=== PATIENT | male | born 1990 | race Caucasian/White ===

== ENCOUNTER 2018-02-05 14:09 | Emergency (ER) | payer BC ==
[2018-02-05 14:25] VITALS: BP 121/68
--- NOTE | 2018-02-05 14:34 | UC ---
Knee Pain HPI - HPI Summary HPI Summary: 27 y/o male presents to the urgent care c/o Rt knee redness and sore s/p insect bite for the past 2 days. Pt doesn't recall any trauma. 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 Pain is 6/10, dull, warm to touch and rash is bigger today. He thinks he had subjective fever w/ chills last night. He has not taken anything to alleviate symptoms. Pt denies Hx of tick bites, STDs, recent strep, SOb, chest pain, abdominal pain, N/V/D, Hx of gout. - History of Current Complaint Chief Complaint: UCLowerExtremity Stated Complaint: R KNEE COMPLAINT Time Seen by Provider: 02/05/18 14:32 Hx Obtained From: Patient Onset/Duration: Gradual Onset, Lasting Days - 1 day, Still Present, Worse Since - this morning Severity Initially: Mild Severity Currently: Moderate Pain Intensity: 6 Pain Scale Used: 0-10 Numeric Character: Dull Aggravating Factor(s): Other - touch Alleviating Factor(s): Rest, OTC Meds Associated Signs And Symptoms: Positive: Swelling - mild, Redness, Fever. Negative: Numbness, Tingling - Risk Factors Septic Arthritis Risk Factor: Negative Gout Risk Factor: Negative - Allergies/Home Medications Allergies/Adverse Reactions: Allergies Allergy/AdvReac Type Severity Reaction Status Date / Time No Known Allergies Allergy Verified 02/05/18 14:25 PMH/Surg Hx/FS Hx/Imm Hx Previously Healthy: Yes Endocrine History: Dyslipidemia - diet control - Surgical History Surgical History: None - Family History Family History: Dyslipidemia - Social History Occupation: Employed Full-time Lives: With Family Alcohol Use: Weekly Substance Use Type: None Smoking Status (MU): Never Smoked Tobacco Review of Systems Constitutional: Fever - subjective last night, Chills Skin: Rash - RT knee redness and mild swellin gand warm to touch s/p insect bite Eyes: Negative ENT: Negative Respiratory: Negative Cardiovascular: Negative Gastrointestinal: Negative Genitourinary: Negative Motor: Negative Neurovascular: Negative Musculoskeletal: Other: - RT knee pain s/p insect bite Neurological: Negative Psychological: Negative Is Patient Immunocompromised?: No All Other Systems Reviewed And Are Negative: Yes Physical Exam - Summary Physical Exam Summary: Vital Signs Reviewed: Yes General: well developed, well nourished male sitting in the examining table w/o any apparent distress Eyes: Positive: Conjunctiva Clear - PERRLA, EOMI, fundi grossly normal ENT: Positive: Normal ENT inspection, Hearing grossly normal, Pharynx normal, TMs normal Neck: Positive: Supple, Nontender, No Lymphadenopathy Respiratory: Positive: Chest nontender, Lungs clear, Normal breath sounds, No respiratory distress Cardiovascular: Positive: RRR, No Murmur, Pulses Normal, Brisk Capillary Refill Abdomen Description: Positive: Nontender, No Organomegaly, Soft. Negative: CVA Tenderness (R), CVA Tenderness (L) Bowel Sounds: Positive: Present Musculoskeletal: Positive: Strength Intact, No Edema, RT Knee: Pt is able to bear weight and ambulate w/o limping. No surface trauma, mild soft tissue swelling, no obvious effusion. Positive overlying erythema patch about 4.0x 3.0cm in size w/ indistinct borders and warmth w/ a central insect bite w/o any drainage. The R knee is without obvious asymmetry or deformity when compared with the L knee. FROM of RT knee. No tenderness to palpation of the patella, no effusion or ballottement. No tenderness over the infrapatellar tendon. No point tenderness over the medial joint line, No tenderness over the medial or lateral tibial plateaus. No tenderness over the proximal fibular head , No tenderness, fullness or mass of the popliteal fossa. Distal motor and neurovascular status intact. Neurological Exam: Normal Psychological Exam: Normal Skin Exam: Normal Triage Information Reviewed: Yes Vital Signs: Initial Vital Signs Temp 98.6 F 02/05/18 14:19 Pulse 81 02/05/18 14:19 Resp 16 02/05/18 14:19 BP 121/68 02/05/18 14:19 Pulse Ox 98 02/05/18 14:19 Knee Pain Course/Dx - Course Course Of Treatment: 27 y/o male presents to the urgent care c/o Rt knee redness and sore s/p insect bite for the past 2 days. Pt doesn't recall any trauma. 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 Pain is 6/10, dull, warm to touch and rash is bigger today. He thinks he had subjective fever w/ chills last night. He has not taken anything to alleviate symptoms. Pt denies Hx of tick bites, STDs, recent strep, SOb, chest pain, abdominal pain, N/V/D, Hx of gout. Hx obtained. Pt with possible cellulitis over the Rt knee s/p insect bite. Pt Rx Keflex PO,and Ibuprofen PO. rash demarcated with a skin marker and Advised if rash doubles in size and if he develops fever to go to the ER for further treatment. Pt BP today elevated w/o Hx of HTN. D/C instructions explained. Pt understood and agreed w/ plan of care. - Differential Dx/Diagnosis Differential Diagnosis/HQI/PQRI: Abrasion, Cellulitis, Contusion, Gout, Infection, Puncture Wound, Other - insect bite Provider Diagnoses: 1 Rt knee cellulitis s/p insect bite Discharge - Sign-Out/Discharge Documenting (check all that apply): Patient Departure - D/c home - Discharge Plan Condition: Stable Disposition: HOME Prescriptions: Cephalexin CAP* [Keflex CAP*] 500 mg PO QID #28 cap Ibuprofen TAB* [Motrin TAB* 800 MG] 800 mg PO Q6H PRN #30 tab PRN Reason: Pain Patient Education Materials: Cellulitis (ED) Referrals: Yamile Young MD [Primary Care Provider] - 3 Days Additional Instructions: 1-Please take full course of Antibiotic. 2- If redness and swelling doubles in size beyond what was demarcated after 48 hrs of taking antibiotic and fever develops please go to the ER immediately. 3-Avoid standing for long periods of time or flexing your knee, keep it elevated and keep wound clean and dry. 4-Please F/u with your PCP in 3 days if not improvement for further evaluation and treatment. - Billing Disposition and Condition Condition: STABLE Disposition: Home
== END 2018-02-05 15:02 | disposition home or self-care (01) ==
LOC: UCEAST 14:09
DX: S80.261A Insect bite (nonvenomous), right knee, initial encounter (principal); L03.115 Cellulitis of right lower limb; W57.XXXA Bitten or stung by nonvenomous insect and other nonvenomous arthropods, initial encounter; Y93.9 Activity, unspecified; Y92.9 Unspecified place or not applicable
CPT/HCPCS: 99202; G0463

== ENCOUNTER 2018-02-14 07:18 | Emergency (ER) | payer BC ==
[2018-02-14 07:34] VITALS: BP 132/83
--- NOTE | 2018-02-14 07:41 | UC ---
Knee Pain HPI - HPI Summary HPI Summary: This is scribe Aminah Portillo documenting for attending Dr. Erik MD. The patient is a 27 year old M presenting to Urgent Care for knee recheck. The patient was last here on 02/05/18, they told him he had cellulitis on his R knee. It was red and painful, he was prescribed cephalexin, the swelling went down some but not all the way, and theres still pain. 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 The knee was much larger than it is now, but since the Abx treatment ended the swelling has gone back up and so has the pain. The patient can walk on it, but after a while it gets sore, and it feels hot if he stands on it, and there has been a "prickly" pain the last few days. His tetanus shot up to date, no smoking, no arthritis or gout, no meds, occasional EtOH use. No punctures in the skin, no ticks or bug bites. He tried to ice it, which caused an increase in pain. I, Dr. Valencia, personally performed the services described in this documentation as scribed in my presence and it is both accurate and complete. - History of Current Complaint Chief Complaint: UCLowerExtremity Stated Complaint: RECHECK KNEE ISSUE Time Seen by Provider: 02/14/18 07:25 Hx Obtained From: Patient Onset/Duration: Lasting Weeks, Still Present Severity Initially: Mild Severity Currently: Mild Location Of Injury: R anterior knee Pain Intensity: 3 Pain Scale Used: 0-10 Numeric Character: Sharp - prickly Aggravating Factor(s): Prolonged Standing, Other - ice Associated Signs And Symptoms: Positive: Swelling, Redness Able to Bear Weight: Yes - Allergies/Home Medications Allergies/Adverse Reactions: Allergies Allergy/AdvReac Type Severity Reaction Status Date / Time No Known Allergies Allergy Verified 02/14/18 07:34 PMH/Surg Hx/FS Hx/Imm Hx - Additional Past Medical History Additional PMH: No arthritis, no gout Previously Healthy: No Cardiovascular History: Other Other Cardiovascular History: neg HTN - Surgical History Surgical History: None - Family History Family History: Dyslipidemia - Social History 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 Lives: With Family Alcohol Use: Occasionally Substance Use Type: None Smoking Status (MU): Never Smoked Tobacco - Immunization History Immunizations Comment: Tetanus UTD Review of Systems Skin: Negative - no punctures, tick or bug bites., Other - redness on R knee Musculoskeletal: Edema - R knee All Other Systems Reviewed And Are Negative: Yes Physical Exam - Summary Physical Exam Summary: Appearance: Well appearing, no pain distress Skin: skin thickening, induration just inferior to R patella, mild warmth Head/face: normal Eyes: EOMI, SHAI ENT: normal Neck: supple, non-tender Respiratory: CTA, breath sounds present Cardiovascular: RRR, pulses symmetrical Abdomen: non-tender, soft Bowel Sounds: present Musculoskeletal: normal, strength/ROM intact, gait is normal, no joint effusion Neuro: normal, sensory motor intact, A&Ox3 Triage Information Reviewed: Yes Vital Signs: Initial Vital Signs Temp 97.6 F 02/14/18 07:25 Pulse 74 02/14/18 07:25 Resp 16 02/14/18 07:25 BP 132/83 02/14/18 07:25 Pulse Ox 98 02/14/18 07:25 Vital Signs Reviewed: Yes Diagnostics - Radiology R knee X-ray Xray Interpretation: Positive (See Comments) - No foreign body identified, infrapatellar swelling Radiology Interpretation Completed By: ED Physician Knee Pain Course/Dx - Course Course Of Treatment: BP noted and advised to follow up with PCP - Differential Dx/Diagnosis Provider Diagnoses: 1. R patellar bursitis 2. Elevated BP without dx of HTN Discharge - Sign-Out/Discharge Documenting (check all that apply): Patient Departure - Discharge Plan Disposition: HOME Referrals: Yamile Young MD [Primary Care Provider] - Additional Instructions: Your blood pressure was elevated during todays visit; please follow up with your primary care provider within a week for further evaluation
--- NOTE | 2018-02-14 08:15 | RAD ---
Indication: 2 weeks RIGHT knee pain and swelling. Anterior pain. Comparison: None. Technique: RIGHT knee: AP and lateral views. Report: Negative for joint effusion, fracture, or malalignment. Soft tissue swelling superficial to the patella and patellar tendon is suggestion of edema within the infrapatellar fat pad. Mild ill-definition of the patellar tendon without gross discontinuity or malposition of the patella. No subcutaneous emphysema or foreign body evident. IMPRESSION: #. Anterior soft tissue swelling. Consider prepatellar cellulitis, prepatellar bursitis, and potential patellar tendinopathy. R0
--- NOTE | 2018-02-15 12:55 | UC ---
- Progress Note Progress Note: PLEASE CALL PATIENT. ADVISED THAT LYME SEROLOGY WAS CANCELED DUE TO HIGH FAT CONTENT OF THE BLOOD. PATIENT SHOULD FOLLOW-UP WITH HIS PCP. HE MAY COME HERE FOR REDRAW ALTHOUGH PLEASE MAKE PATIENT AWARE THAT THE RESULT MAY BE THE SAME. SUSANNE RAND M.D. Discharge - Sign-Out/Discharge Documenting (check all that apply): Patient Departure, Post-Discharge Follow Up - Discharge Plan Condition: Improved Disposition: HOME Prescriptions: DOXYcycline CAP(*) [DOXYcycline 100MG CAP(*)] 100 mg PO BID #14 cap predniSONE TAB* [Deltasone TAB*] 50 mg PO DAILY #5 tab Patient Education Materials: Knee Bursitis (ED) Referrals: Janice Valdez MD [Medical Doctor] - Yamile Young MD [Primary Care Provider] - Additional Instructions: Your blood pressure was elevated during todays visit; please follow up with your primary care provider within a week for further evaluation - Billing Disposition and Condition Condition: IMPROVED Disposition: Home
== END 2018-02-14 07:55 | disposition home or self-care (01) ==
LOC: UCEAST 07:18
DX: M70.41 Prepatellar bursitis, right knee (principal); Y93.89 Activity, other specified; R03.0 Elevated blood-pressure reading, without diagnosis of hypertension
CPT/HCPCS: 86618; 99212; G0463